=== PATIENT | female | born 1965 | race Caucasian/White ===

== ENCOUNTER 2023-01-08 12:35 | Emergency (ER) | payer BC, SELFPAY ==
[2023-01-08 12:40] VITALS: BP 131/78; PULSE 78; RESP 18; TEMP 36.8
--- NOTE | 2023-01-08 13:25 | ED.GENADUL_ITS ---
Discharge Plan Disposition Patient Disposition: Home Discharge Details Clinical Impression: Pill esophagitis Primary Care Provider: Unknown,Unknown ED Provider: Tory Chatterjee Home Meds and New Rx's Prescriptions: New sucralfate [Carafate] 100 mg/mL suspension 7.5 ml PO QID Qty: 1000 0RF Rx Instructions: swish in mouth and swallow; use after food/drink Discharge Instructions Instructions: Corrosive Esophagitis (ED) Discharge Data Discharge Date/Time-TO BE ENTERED AT DEPARTURE: 01/08/23 13:27 Medical Decision Making Evaluation of throat pain. Initial differential includes esophageal food bolus, pill esophagitis, doubt esophageal rupture. Patient is well-appearing, she has no concerning signs for impaction. Will give medication and reassess. 1325. Patient reports resolution of her symptoms after taking the Maalox lidocaine. There is no indication for admission, further emergent work-up or emergent EGD. Will discharge with Carafate. Return precautions advised. Follow-up as needed. HPI General Date/Time Provider Initiated Documentation: 01/08/23 12:54 . Limitations to Documentation: no limitations . Information obtained by: patient . HPI Narrative: 57-year-old female without significant past medical history presents for evaluation of throat pain. About an hour ago she was taking her multivitamin and she feels like it got stuck in her throat. She states that the pain is localized to the mid throat, is not associate with voice change, difficulty swallowing or difficulty breathing. She reports that she able to drink water and has had multiple glasses of water without relief of the symptoms. Patient has never had issues with her esophagus or any procedure to her esophagus. Related Data Home Medications Medication Instructions Recorded Confirmed sucralfate 100 mg/mL oral 7.5 ml PO QID #1,000 mL 01/08/23 suspension (Carafate) Previous Rx's Medication Instructions Recorded sucralfate 100 mg/mL oral 7.5 ml PO QID #1,000 mL 01/08/23 suspension (Carafate) Allergies Allergy/AdvReac Type Severity Reaction Status Date / Time erythromycin base AdvReac Mild rash Unverified 01/08/23 12:52 General Stated Complaint: ThroatFB YADIRA: 3 PFSH All Active Problems Pill esophagitis (Acute) Social History Smoking/Tobacco Use Status: Never Smoking risk assessment performed?: Yes Substance use type: does not use Exam Narrative Exam Narrative: Review of Systems: All systems reviewed & are unremarkable except as noted in HP I and below Well-developed, no acute distress NACT Normal swallow, no drooling, no stridor PERRL, normal conjunctiva RRR Unlabored respiratory effort Nondistended abdomen Extremities w/o deformity, no cyanosis, no edema No rashes or lesions. no focal neurologic deficits Appropriate mood and affect Course Vital Signs Vital signs: Vital Signs Temperature 36.8 C 01/08/23 12:40 Pulse 78 01/08/23 12:40 Respiratory Rate 18 01/08/23 12:40 Blood Pressure 131/78 01/08/23 12:40 Temperature 36.8 C 01/08/23 12:40 Temperature Source Temporal Artery Scan 01/08/23 12:40 Pulse 78 01/08/23 12:40 Respiratory Rate 18 01/08/23 12:40 Respiratory Effort Normal, Non-Labored 01/08/23 12:47 Respiratory Pattern Normal 01/08/23 12:47 Blood Pressure 131/78 01/08/23 12:40 Blood Pressure Position Sitting 01/08/23 12:40 Oxygen Delivery Method Room Air 01/08/23 12:40 Oxygen Flow Rate 0 01/08/23 12:40
== END 2023-01-08 13:27 | disposition home or self-care (01) ==
PROVIDERS: Emergency Provider Emergency Medicine
DX: K20.80 Other esophagitis without bleeding (principal); T50.905A Adverse effect of unspecified drugs, medicaments and biological substances, initial encounter
CPT/HCPCS: 99283